=== PATIENT | male | born 1955 | race Two or more races ===

== ENCOUNTER 2022-06-17 09:41 | Outpatient (CLI) | payer OTHER | END 2022-06-17 09:42 | disposition home or self-care (01) | LOC: LAB 09:41 | PROVIDERS: ATTEND Urology | DX: R97.20 Elevated prostate specific antigen [PSA] (principal) ==

== ENCOUNTER 2022-07-19 07:30 | Outpatient (CLI) | payer OTHER | END 2022-07-19 07:31 | disposition home or self-care (01) | LOC: SONOGRAMA 07:30 | PROVIDERS: ATTEND Urology | DX: C61 Malignant neoplasm of prostate (principal); R97.20 Elevated prostate specific antigen [PSA]; D29.1 Benign neoplasm of prostate ==